=== PATIENT | male | born 1990 | race Caucasian/White ===

== ENCOUNTER → 2018-01-07 | Outpatient (CLI) | payer OTHER ==
[~2018-01-07] MED LIST: ACETAMINOPHEN-1 EAC1 PO; CONCERTA; KEFLEX500 MG PO; LEXAPRO; LEXAPRO 10 MG T10 M2 PO; LISINOPRIL10 MG PO; NORCO 10-325 T1 EACH PO; ZANAFLEX4 MG PO
== END ==
LOC: M.ULTRA 12-09 08:48
DX: R31.9 Hematuria, unspecified (principal); I10 Essential (primary) hypertension; F32.9 Major depressive disorder, single episode, unspecified; F17.210 Nicotine dependence, cigarettes, uncomplicated; R10.9 Unspecified abdominal pain; Z79.899 Other long term (current) drug therapy

== ENCOUNTER → 2018-01-31 | Outpatient (CLI) | payer OTHER | LOC: M.LAB 13:00 → M.CT 14:00 | PROVIDERS: Family Medicine | DX: K76.0 Fatty (change of) liver, not elsewhere classified (principal); N20.0 Calculus of kidney; R93.429 Abnormal radiologic findings on diagnostic imaging of unspecified kidney ==

== ENCOUNTER 2021-03-04 14:23 | Emergency (ER) | payer OTHER ==
[~2021-03-04] VITALS: Ht 190.5 cm; Wt 145.2 kg
[2021-03-04] MEDS ORDERED: ANALPRAM HC 2.530 GM RECTAL (15:44)
[2021-03-04 15:47] VITALS: BP 134/72
== END 2021-03-04 15:48 | disposition home or self-care (01) ==
LOC: M.ERS 14:23
DX: K64.8 Other hemorrhoids (principal); F32.9 Major depressive disorder, single episode, unspecified; I10 Essential (primary) hypertension; Z79.899 Other long term (current) drug therapy